=== PATIENT | female | born 1975 | race Caucasian/White ===

== ENCOUNTER 2020-12-25 05:24 | Inpatient (IN) | payer OTHER ==
[2020-12-25 06:00] VITALS: BMI 27.4
[2020-12-25 06:17] LABS: HEMATOCRIT 36.3 % (32.4-45.2); HEMOGLOBIN 11.8 GM/dL (10.7-15.3); MCH 27.2 pg (25.7-33.7); MCHC 32.4 g/dl (32.0-36.0); MEAN CELL VOLUME 83.9 fl (80-96); MEAN PLT VOLUME 9.5 fl (7.5-11.1); PLATELET COUNT 118 K/MM3 (134-434); RBC 4.33 M/mm3 (3.60-5.2); RDW 19.8 % (11.6-15.6)
[2020-12-25 06:18] LABS: INR 1.13 (0.83-1.09); PROTHROMBIN TIME (PATIENT) 13.9 SEC (9.7-13.0)
[2020-12-25 06:20] LABS: ACTIVATED PTT 26.6 SECONDS (25.2-36.5); WHITE BLOOD COUNT 0.5 K/mm3 (4.0-10.0)
[2020-12-25 06:21] LABS: CHLORIDE 117 mmol/L (98-107); POTASSIUM 4.2 mmol/L (3.5-5.1); SODIUM 151 mmol/L (136-145)
[2020-12-25 06:24] LABS: ALBUMIN 3.5 g/dl (3.4-5.0); ANION GAP 5 MMOL/L (8-16); BLOOD UREA NITROGEN 43.8 mg/dL (7-18); CALCIUM 9.8 mg/dL (8.5-10.1); CO2 30 mmol/L (21-32); GLUCOSE,RANDOM 170 mg/dL (74-106); LIPASE 126 U/L (73-393); MAGNESIUM 2.3 mg/dL (1.8-2.4)
[2020-12-25 06:27] LABS: CREATININE 2.3 mg/dL (0.55-1.3); SGOT/AST 33 U/L (15-37); SGPT/ALT 82 U/L (13-61)
[2020-12-25 06:29] LABS: BILIRUBIN,TOTAL 1.9 mg/dL (0.2-1); TOT PROT 7.7 g/dl (6.4-8.2)
[2020-12-25 06:30] LABS: ALK PHOS 124 U/L (45-117)
[2020-12-25 06:32] LABS: N-TERMINAL BNP 693.8 pg/ml (5-125)
[2020-12-25] MEDS ORDERED: ACETAMINOPHEN 1000 MG/100 ML VIAL (NON FORMULARY) IVPB ONE (06:35)
[2020-12-25] MEDS ORDERED: CEFEPIME HCL/D5W 1 GM/50 ML BAG IVPB ONE (06:41)
[2020-12-25] MEDS ORDERED: VANCOMYCIN 1 GM in D5W (PRE-DOCKED) 1,000 MG/250 ML IVPB ONE (06:42)
[2020-12-25] MEDS ORDERED: ACETAMINOPHEN INJECTION 100 ML IVPB ONE (06:43)
[2020-12-25 08:54] LABS: ANISOCYTOSIS 1+; MACROCYTOSIS 0; PLATELET ESTIMATE DECREASED
[2020-12-25] MEDS ORDERED: SODIUM CHLORIDE 500 ML IV STA (09:44)
[2020-12-25] MEDS ORDERED: CEFEPIME 1 GM/100 ML BAG IVPB ONE ×2 (09:52→22:53)
[2020-12-25] MEDS ORDERED: VANCOMYCIN 1 GRAM (PRE-DOCKED) 1,000 MG/250 ML BAG IVPB ONE (09:52)
[2020-12-25 10:03] LABS: EPI CELLS >36 /uL (0-25.1); HYALINE CASTS 12 /uL (0-3.1); URINE APPEARANCE CLOUDY; URINE BILIRUBIN 2+ (NEGATIVE); URINE COLOR DK YELLOW; URINE GLUCOSE (UA) NEGATIVE (NEGATIVE); URINE KETONE TRACE (NEGATIVE); URINE LEUK ESTERASE TRACE (NEGATIVE); URINE NITRITE POSITIVE (NEGATIVE); URINE PROTEIN 2+ (NEGATIVE); URINE WBC 35 /uL (0-25.8)
[2020-12-25 11:09] LABS: URINE RBC 62.6 /uL (0-23.9)
[2020-12-25 11:23] LABS: URINE BACTERIA 1247.5 /uL (0-1359)
[2020-12-25] MEDS ORDERED: LACTATED RINGERS SOLUTION 1,000 ML/1,000 ML INFUS.BAG IV SCH (12:00)
[2020-12-25] MEDS ORDERED: HEPARIN NA (PORCINE) 5,000 UNITS/ML 1ML VIAL ONE ×2 (12:44→22:53)
[2020-12-25] MEDS: HEPARIN NA (PORCINE) 5,000 UNITS/ML 1ML VIAL SQ SCH ×2 (15:58→23:02)
[2020-12-25] MEDS ORDERED: TBO-FILGRASTIM 480 MCG/0.8 ML DISP.SYRIN SQ SCH (16:45)
[2020-12-25] MEDS: SODIUM CHLORIDE 0.45% 1,000 ML IV SCH (18:10)
[2020-12-25] MEDS: CEFEPIME HCL/D5W 1 GM/50 ML BAG IVPB SCH (23:02)
[2020-12-26] MEDS: MORPHINE SULFATE 2 MG/ML VIAL IVPUSH ONE ×2 (02:38→03:52)
[2020-12-26] MEDS ORDERED: MORPHINE SULFATE 2 MG/ML VIAL IM ONE (03:00)
[2020-12-26] MEDS: SODIUM CHLORIDE 0.45% 1,000 ML IV SCH ×2 (04:19→17:46)
[2020-12-26] MEDS: HEPARIN NA (PORCINE) 5,000 UNITS/ML 1ML VIAL SQ SCH ×3 (05:35→21:23)
[2020-12-26] MEDS ORDERED: ONDANSETRON 4 MG/2 ML VIAL IVPB ONE (05:39)
[2020-12-26] MEDS ORDERED: PT OWN MED DRAWER 7, Y5N ONE ×2 (10:26→21:18)
[2020-12-26 11:26] LABS: BASO % 2.1 % (0-2.0); EOS % 4.6 % (0-4.5); HEMATOCRIT 31.3 % (32.4-45.2); HEMOGLOBIN 10.1 GM/dL (10.7-15.3); LYMPH % 36.9 % (8-40); MCH 27.3 pg (25.7-33.7); MCHC 32.2 g/dl (32.0-36.0); MEAN CELL VOLUME 84.8 fl (80-96); MEAN PLT VOLUME 9.7 fl (7.5-11.1); MONO % 27.7 % (3.8-10.2); NEUT % 28.7 % (42.8-82.8); PLATELET COUNT 110 K/MM3 (134-434); RBC 3.69 M/mm3 (3.60-5.2); RDW 19.4 % (11.6-15.6)
[2020-12-26 12:06] LABS: PHOSPHOROUS 2.6 mg/dL (2.5-4.9)
[2020-12-26 12:08] LABS: ALBUMIN 2.9 g/dl (3.4-5.0)
[2020-12-26 12:09] LABS: BLOOD UREA NITROGEN 32.3 mg/dL (7-18); CALCIUM 8.9 mg/dL (8.5-10.1); MAGNESIUM 1.8 mg/dL (1.8-2.4)
[2020-12-26 12:12] LABS: CREATININE 1.7 mg/dL (0.55-1.3)
[2020-12-26 12:13] LABS: BILIRUBIN,TOTAL 1.2 mg/dL (0.2-1)
[2020-12-26 12:14] LABS: TOT PROT 6.6 g/dl (6.4-8.2)
[2020-12-26 12:24] LABS: POTASSIUM 3.7 mmol/L (3.5-5.1)
[2020-12-26] MEDS: CEFEPIME HCL/D5W 1 GM/50 ML BAG IVPB SCH ×2 (13:41→21:23)
[2020-12-26] MEDS: ONDANSETRON 4 MG/2 ML VIAL IVPUSH PRN (13:41)
[2020-12-26] MEDS: TBO-FILGRASTIM 480 MCG/0.8 ML DISP.SYRIN SQ SCH (13:41)
[2020-12-26 14:44] LABS: ANISOCYTOSIS 1+; MACROCYTOSIS 0; PLATELET ESTIMATE DECREASED
[2020-12-27] MEDS: ONDANSETRON 4 MG/2 ML VIAL IVPUSH PRN (03:33)
[2020-12-27] MEDS: HEPARIN NA (PORCINE) 5,000 UNITS/ML 1ML VIAL SQ SCH ×3 (05:51→21:31)
[2020-12-27] MEDS ORDERED: PNEUMOCOCCAL 23 VACCINE 0.5 ML VIAL IM ONE (09:00)
[2020-12-27] MEDS ORDERED: PNEUMOC 13-VAL CONJ-DIP CRM/PF 0.5 ML DISP.SYRIN IM ONE (10:00)
[2020-12-27] MEDS ORDERED: PT OWN MED DRAWER 7, Y5N ONE ×2 (10:09→21:10)
[2020-12-27] MEDS ORDERED: ACETAMINOPHEN 325 MG TABLET (FP) PO PRN (11:09)
[2020-12-27] MEDS: CEFEPIME HCL/D5W 1 GM/50 ML BAG IVPB SCH ×2 (11:11→21:31)
[2020-12-27] MEDS: TBO-FILGRASTIM 480 MCG/0.8 ML DISP.SYRIN SQ SCH (11:55)
[2020-12-27 12:24] LABS: BASO % 0.3 % (0-2.0); EOS % 0.6 % (0-4.5); HEMATOCRIT 30.8 % (32.4-45.2); LYMPH % 15.2 % (8-40); MCH 27.5 pg (25.7-33.7); MCHC 32.6 g/dl (32.0-36.0); MEAN CELL VOLUME 84.3 fl (80-96); MEAN PLT VOLUME 9.9 fl (7.5-11.1); MONO % 17.5 % (3.8-10.2); NEUT % 66.4 % (42.8-82.8); PLATELET COUNT 120 K/MM3 (134-434); RBC 3.65 M/mm3 (3.60-5.2); RDW 19.6 % (11.6-15.6)
[2020-12-27 12:53] LABS: POTASSIUM 3.4 mmol/L (3.5-5.1)
[2020-12-27 12:55] LABS: ALBUMIN 2.7 g/dl (3.4-5.0); BLOOD UREA NITROGEN 24.8 mg/dL (7-18)
[2020-12-27 12:56] LABS: MAGNESIUM 1.7 mg/dL (1.8-2.4)
[2020-12-27 12:58] LABS: CREATININE 1.6 mg/dL (0.55-1.3); PHOSPHOROUS 2.2 mg/dL (2.5-4.9)
[2020-12-27 12:59] LABS: BILIRUBIN,TOTAL 0.6 mg/dL (0.2-1)
[2020-12-27 13:00] LABS: TOT PROT 6.1 g/dl (6.4-8.2)
[2020-12-27 15:00] LABS: ANISOCYTOSIS 1+; MACROCYTOSIS 0; PLATELET ESTIMATE DECREASED
[2020-12-27] MEDS ORDERED: POTASSIUM CHLORIDE TABS 20 MEQ TABLET.ER (FP) PO ONE (15:59)
[2020-12-27] MEDS: SODIUM CHLORIDE 0.45% 1,000 ML IV SCH (18:29)
[2020-12-28] MEDS: HEPARIN NA (PORCINE) 5,000 UNITS/ML 1ML VIAL SQ SCH ×3 (06:16→22:35)
[2020-12-28] MEDS ORDERED: PT OWN MED DRAWER 7, Y5N ONE ×3 (08:33→22:09)
[2020-12-28] MEDS: CEFEPIME HCL/D5W 1 GM/50 ML BAG IVPB SCH ×2 (09:28→22:36)
[2020-12-28] MEDS: TBO-FILGRASTIM 480 MCG/0.8 ML DISP.SYRIN SQ SCH (10:55)
[2020-12-28] MEDS: SODIUM CHLORIDE 0.45% 1,000 ML IV SCH ×2 (11:01→17:30)
[2020-12-28 12:10] LABS: BASO % 0.4 % (0-2.0); EOS % 0.4 % (0-4.5); HEMATOCRIT 28.5 % (32.4-45.2); HEMOGLOBIN 9.4 GM/dL (10.7-15.3); LYMPH % 8.9 % (8-40); MCH 27.7 pg (25.7-33.7); MCHC 32.9 g/dl (32.0-36.0); MEAN CELL VOLUME 84.1 fl (80-96); MONO % 9.7 % (3.8-10.2); NEUT % 80.6 % (42.8-82.8); PLATELET COUNT 172 K/MM3 (134-434); RBC 3.39 M/mm3 (3.60-5.2); RDW 18.6 % (11.6-15.6); WHITE BLOOD COUNT 14.3 K/mm3 (4.0-10.0)
[2020-12-28 12:22] LABS: POTASSIUM 3.5 mmol/L (3.5-5.1)
[2020-12-28 12:28] LABS: CALCIUM 8.5 mg/dL (8.5-10.1)
[2020-12-28 12:29] LABS: ALBUMIN 2.5 g/dl (3.4-5.0); MAGNESIUM 1.7 mg/dL (1.8-2.4)
[2020-12-28 12:32] LABS: BILIRUBIN,TOTAL 0.4 mg/dL (0.2-1); CREATININE 1.3 mg/dL (0.55-1.3); TOT PROT 5.8 g/dl (6.4-8.2)
[2020-12-28 13:29] LABS: ANISOCYTOSIS 1+; MACROCYTOSIS 0; PLATELET ESTIMATE NORMAL
[2020-12-28] MEDS ORDERED: MAGNESIUM SULF 50% (8.12 MEQ/2 ML-1 GM VIAL) IVPB ONE (15:18)
[2020-12-29] MEDS: ONDANSETRON 4 MG/2 ML VIAL IVPUSH PRN (02:04)
[2020-12-29] MEDS: HEPARIN NA (PORCINE) 5,000 UNITS/ML 1ML VIAL SQ SCH ×3 (05:52→21:57)
[2020-12-29 07:56] LABS: BASO % 0.2 % (0-2.0); EOS % 0.1 % (0-4.5); HEMATOCRIT 29.8 % (32.4-45.2); HEMOGLOBIN 9.5 GM/dL (10.7-15.3); LYMPH % 5.1 % (8-40); MCH 27.4 pg (25.7-33.7); MEAN CELL VOLUME 85.8 fl (80-96); MEAN PLT VOLUME 9.4 fl (7.5-11.1); MONO % 7.4 % (3.8-10.2); NEUT % 87.2 % (42.8-82.8); PLATELET COUNT 201 K/MM3 (134-434); RBC 3.47 M/mm3 (3.60-5.2); RDW 19.4 % (11.6-15.6)
[2020-12-29 08:00] LABS: WHITE BLOOD COUNT 38.1 K/mm3 (4.0-10.0)
[2020-12-29] MEDS ORDERED: PT OWN MED DRAWER 7, Y5N ONE (08:11)
[2020-12-29 08:46] LABS: ALBUMIN 2.6 g/dl (3.4-5.0); CALCIUM 8.3 mg/dL (8.5-10.1)
[2020-12-29 08:47] LABS: BLOOD UREA NITROGEN 18.7 mg/dL (7-18); MAGNESIUM 2.2 mg/dL (1.8-2.4)
[2020-12-29 08:50] LABS: CREATININE 1.2 mg/dL (0.55-1.3)
[2020-12-29 08:51] LABS: BILIRUBIN,TOTAL 0.5 mg/dL (0.2-1); TOT PROT 5.9 g/dl (6.4-8.2)
[2020-12-29] MEDS: CEFEPIME HCL/D5W 1 GM/50 ML BAG IVPB SCH ×2 (09:04→21:50)
[2020-12-29] MEDS ORDERED: POTASSIUM CHLORIDE TABS 20 MEQ TABLET.ER (FP) PO ONE (11:19)
[2020-12-29 11:33] LABS: ANISOCYTOSIS 1+; MACROCYTOSIS 0; PLATELET ESTIMATE NORMAL
[2020-12-29] MEDS: SODIUM CHLORIDE 0.45%/POT 20 MEQ/1,000 ML INFUS.BAG IV SCH (13:43)
[2020-12-30] MEDS: ONDANSETRON 4 MG/2 ML VIAL IVPUSH PRN ×2 (02:34→10:21)
[2020-12-30] MEDS: HEPARIN NA (PORCINE) 5,000 UNITS/ML 1ML VIAL SQ SCH ×3 (06:53→21:40)
[2020-12-30 07:58] LABS: POTASSIUM 3.2 mmol/L (3.5-5.1)
[2020-12-30 08:01] LABS: ALBUMIN 2.4 g/dl (3.4-5.0); CALCIUM 7.8 mg/dL (8.5-10.1); MAGNESIUM 1.7 mg/dL (1.8-2.4)
[2020-12-30 08:03] LABS: BLOOD UREA NITROGEN 15.8 mg/dL (7-18)
[2020-12-30 08:04] LABS: CREATININE 0.9 mg/dL (0.55-1.3)
[2020-12-30 08:06] LABS: BILIRUBIN,TOTAL 0.4 mg/dL (0.2-1)
[2020-12-30 08:07] LABS: TOT PROT 5.5 g/dl (6.4-8.2)
[2020-12-30 08:08] LABS: POTASSIUM 3.1 mmol/L (3.5-5.1)
[2020-12-30 08:12] LABS: BASO % 0.2 % (0-2.0); EOS % 0.1 % (0-4.5); HEMATOCRIT 28.2 % (32.4-45.2); HEMOGLOBIN 8.9 GM/dL (10.7-15.3); LYMPH % 5.9 % (8-40); MCH 27.2 pg (25.7-33.7); MCHC 31.6 g/dl (32.0-36.0); MEAN CELL VOLUME 85.9 fl (80-96); MEAN PLT VOLUME 8.9 fl (7.5-11.1); MONO % 7.9 % (3.8-10.2); NEUT % 85.9 % (42.8-82.8); PLATELET COUNT 193 K/MM3 (134-434); RBC 3.28 M/mm3 (3.60-5.2); RDW 19.4 % (11.6-15.6); WHITE BLOOD COUNT 23.3 K/mm3 (4.0-10.0)
[2020-12-30 08:18] LABS: CALCIUM 7.9 mg/dL (8.5-10.1)
[2020-12-30 08:22] LABS: CREATININE 0.9 mg/dL (0.55-1.3)
[2020-12-30] MEDS: CEFEPIME HCL/D5W 1 GM/50 ML BAG IVPB SCH ×2 (10:21→21:41)
[2020-12-30 10:43] LABS: ANISOCYTOSIS 1+; MACROCYTOSIS 1+; PLATELET ESTIMATE NORMAL
[2020-12-30] MEDS ORDERED: METOCLOPRAMIDE HCL INJECTION 10 MG/2 ML VIAL IVPUSH PRN (11:43)
[2020-12-30] MEDS ORDERED: POTASSIUM CHLORIDE TABS 20 MEQ TABLET.ER (FP) PO ONE (11:49)
[2020-12-30] MEDS ORDERED: KCL 10 MEQ IVPB 10 MEQ/100 ML INFUS.BAG IVPB SCH (14:30)
[2020-12-30] MEDS: SODIUM CHLORIDE 0.45%/POT 20 MEQ/1,000 ML INFUS.BAG IV SCH (14:45)
[2020-12-30] MEDS ORDERED: PT OWN MED DRAWER 7, Y5N ONE ×2 (17:51→21:39)
[2020-12-30 18:59] VITALS: BP 127/78; PULSE 94; TEMP 97.8
[2020-12-31] MEDS: HEPARIN NA (PORCINE) 5,000 UNITS/ML 1ML VIAL SQ SCH ×2 (06:20→14:10)
[2020-12-31] MEDS ORDERED: PT OWN MED DRAWER 7, Y5N ONE ×3 (08:53→10:03)
[2020-12-31] MEDS: CEFEPIME HCL/D5W 1 GM/50 ML BAG IVPB SCH (10:30)
[2020-12-31] MEDS ORDERED: SODIUM CHLORIDE 0.45%/POT 20 MEQ/1,000 ML INFUS.BAG IV SCH (12:44)
[2020-12-31] MEDS ORDERED: POTASSIUM CHLORIDE TABS 20 MEQ TABLET.ER (FP) PO ONE (13:15)
[2020-12-31] MEDS ORDERED: MAGNESIUM OXIDE 400 MG TABLET (FP) PO ONE (13:15)
[2020-12-31] MEDS: KCL 10 MEQ IVPB 10 MEQ/100 ML INFUS.BAG IVPB SCH ×3 (14:10→14:25)
== END 2020-12-31 18:00 | disposition home or self-care (01) | DRG 660 ==
LOC: JER 05:24 → JERBED 11:03 → J4S 12-26 00:15
PROVIDERS: ADMIT Internal Medicine; ATTEND Nurse Practitioner Family
PROC: 0T25X0Z Change Drainage Device in Kidney, External Approach (ICD-10-PCS; principal; 2020-12-26)
DX: D70.9 Neutropenia, unspecified (principal); N39.0 Urinary tract infection, site not specified; N17.9 Acute kidney failure, unspecified; N13.30 Unspecified hydronephrosis; E87.0 Hyperosmolality and hypernatremia; E87.6 Hypokalemia; R50.81 Fever presenting with conditions classified elsewhere; R59.1 Generalized enlarged lymph nodes; N13.9 Obstructive and reflux uropathy, unspecified; C84.60 Anaplastic large cell lymphoma, ALK-positive, unspecified site; R53.1 Weakness
CPT/HCPCS: 36415; 50435; 71045-TC-FY; 71250-TC; 74176-TC; 80048; 80053; 81003; 83605; 83690; 83735; 83880; 84100; 84443; 84484; 85025; 85610; 85730; 86850; 86900; 86901; 87040; 87086; 87186; 93005; 93010; 93306-TC; 99285-25; C9803; J0131; J1447; J1644; J3480; U0003